=== PATIENT | female | born 1985 | race Caucasian/White ===

== ENCOUNTER 2016-08-31 00:01 | Emergency (ER) | payer OTHER ==
[~2016-08-31] VITALS: Ht 162.6 cm; Wt 69.6 kg
[~2016-08-31 00:01] MED LIST: BACTRIM,SEPT1 TABLET PO; BAYER BACK & B1 EACH PO; ENDOCET 5-3251 EACH PO; FIORICET,ESG1 TABLET PO; FLEXERIL10 MG PO; IBUPROFEN800 MG PO; IRON325 MG PO; LEXAPRO10 MG PO; LEXAPRO20 MG PO; MOTRIN800 MG PO; NAPROSYN500 MG PO; OXYCODONE HCL5 MG PO; PREDNISONE20 MG PO; PRILOSEC20 MG PO; TOPAMAX50 MG PO; TYLENOL WITH C1 EACH PO; VALIUM5 MG PO; XANAX0.25 MG PO; [UNRECOGNIZED DRUG - CODE]
[2016-08-31] MEDS ORDERED: NORCO 5/3251 TABLET PO (01:36)
[2016-08-31 02:42] VITALS: BP 151/70
== END 2016-08-31 02:42 | disposition home or self-care (01) ==
LOC: EXP 00:01 → EME 00:01 → EXP 02:42
PROC: 2W3QX1Z Immobilization of Right Lower Leg using Splint (ICD-10-PCS; principal; 2016-08-31)
DX: S92.351A Displaced fracture of fifth metatarsal bone, right foot, initial encounter for closed fracture (principal); S99.911A Unspecified injury of right ankle, initial encounter; W10.9XXA Fall (on) (from) unspecified stairs and steps, initial encounter; X50.1XXA Overexertion from prolonged static or awkward postures, initial encounter; Y92.009 Unspecified place in unspecified non-institutional (private) residence as the place of occurrence of the external cause; F17.200 Nicotine dependence, unspecified, uncomplicated
CPT/HCPCS: 73610; 73630

== ENCOUNTER 2016-12-09 23:21 | Emergency (ER) | payer OTHER ==
[~2016-12-09] VITALS: Ht 162.6 cm; Wt 70.8 kg
[~2016-12-09 23:21] MED LIST changes: +NORCO 5/3251 TABLET PO
[2016-12-09 23:25] VITALS: BP 118/96
[2016-12-10] MEDS ORDERED: PERCOCET 5/31 TABLET PO (02:02)
== END 2016-12-10 02:15 | disposition home or self-care (01) ==
LOC: EME 23:21
DX: S52.501A Unspecified fracture of the lower end of right radius, initial encounter for closed fracture (principal); S52.611A Displaced fracture of right ulna styloid process, initial encounter for closed fracture; W01.0XXA Fall on same level from slipping, tripping and stumbling without subsequent striking against object, initial encounter; Y93.E5 Activity, floor mopping and cleaning
CPT/HCPCS: 73110; 99281; 99284; S0020

== ENCOUNTER 2017-03-22 12:18 | Emergency (ER) | payer OTHER ==
[~2017-03-22] VITALS: Ht 162.6 cm; Wt 68.2 kg
[~2017-03-22 12:18] MED LIST changes: +PERCOCET 5/31 TABLET PO
[2017-03-22 12:54] LABS: ADD MIUA? YES; BILIRUBIN NEGATIVE; BLOOD LARGE; COLOR AMBER ((YELLOW)); GLUCOSE (STRIP) NEGATIVE; KETONES 5; LEUKOCYTES MODERATE; NITRITE POSITIVE; PROTEIN (STRIP) >=500; SPECIFIC GRAVITY 1.032 (1.000-1.030)
[2017-03-22 12:58] LABS: BACTERIA 3+ /HPF; BUDDING YEAST 1+; EPITHELIAL CELLS 4+ /HPF; MUCUS 4+ /LPF; RED BLOOD CELLS 40-50 /HPF (0-5); UCUL ADDED? YES; WHITE BLOOD CELLS TNTC /HPF (0-5)
[2017-03-22 13:39] LABS: HEMATOCRIT 38.7 % (36.0-46.0); MCH 21.3 PG (29.0-34.0); MCHC 28.7 G/DL (30.0-36.0); MCV 74.3 FL (83-99); MEAN PLAT.VOLUME 10.1 uM^3 (9.5-12.4); PLATELET COUNT 525 K/uL (156-360); RBC DIS.WIDTH-CV 16.9 % (11.8-14.6); RBC DIS.WIDTH-SD 44.4 % (39-53); RED BLOOD COUNT 5.21 M/uL (3.80-5.20); WHITE BLOOD COUNT 8.1 K/uL (4.1-10.2)
[2017-03-22 13:53] LABS: QUANTITATIVE HCG < 4.0 MIU/ML
[2017-03-22 14:18] LABS: ALKALINE PHOSPHATASE 66 IU/L (3-129); ANION GAP 16 MEQ/L (2-14); CHLORIDE 103 MEQ/L (99-109); GFR ESTIMATE (CALCULATED) > 59 mL/min/; GLUCOSE 94 mg/dL (70-99); POTASSIUM 4.6 MEQ/L (3.7-5.4); SAMPLE HEMOLYSIS CHECK 0; SAMPLE ICTERIC CHECK 0; SAMPLE LIPEMIA CHECK 0; SODIUM 138 MEQ/L (136-147); TOTAL BILIRUBIN 0.3 MG/DL (0.0-1.0); UREA NITROGEN (BUN) 19 mg/dL (9-23)
[2017-03-22] MEDS ORDERED: HYDROCODON-ACE1 EAC8 PO (14:24)
[2017-03-22] MEDS ORDERED: ZOFRAN ODT4 MG PO (15:57)
[2017-03-22] MEDS ORDERED: KEFLEX500 MG PO (15:57)
[2017-03-22 16:54] VITALS: BP 107/66
== END 2017-03-22 17:01 | disposition home or self-care (01) ==
LOC: EME 12:18
DX: N39.0 Urinary tract infection, site not specified (principal); R11.2 Nausea with vomiting, unspecified; K59.00 Constipation, unspecified; M79.7 Fibromyalgia; H54.61 Unqualified visual loss, right eye, normal vision left eye; F41.9 Anxiety disorder, unspecified; F17.200 Nicotine dependence, unspecified, uncomplicated; Z91.040 Latex allergy status; Z88.8 Allergy status to other drugs, medicaments and biological substances
CPT/HCPCS: 74177; 80053; 81003; 83605; 84702; 85027; 87040; 87077; 87086; 87186; 99281; 99285; J0500; J1885; J2405; J7030

== ENCOUNTER 2017-11-05 20:09 | Emergency (ER) | payer OTHER ==
[~2017-11-05] VITALS: Ht 162.6 cm; Wt 74.8 kg
[~2017-11-05 20:09] MED LIST changes: +HYDROCODON-ACE1 EAC8 PO; +KEFLEX500 MG PO; +ZOFRAN ODT4 MG PO
[2017-11-05] MEDS ORDERED: NORCO 7.5/321 TABLET PO (21:27)
[2017-11-05] MEDS ORDERED: MOTRIN800 MG PO (21:27)
[2017-11-05 22:00] VITALS: BP 130/61
== END 2017-11-05 22:34 | disposition home or self-care (01) ==
LOC: EME 20:09
PROC: 2W3CX1Z Immobilization of Right Lower Arm using Splint (ICD-10-PCS; principal; 2017-11-05)
DX: S52.611A Displaced fracture of right ulna styloid process, initial encounter for closed fracture (principal); X50.9XXA Other and unspecified overexertion or strenuous movements or postures, initial encounter; W20.8XXA Other cause of strike by thrown, projected or falling object, initial encounter; F17.200 Nicotine dependence, unspecified, uncomplicated
CPT/HCPCS: 73110; 99281; 99284

== ENCOUNTER → 2017-12-10 | Outpatient (CLI) | payer OTHER ==
[~2017-12-10] MED LIST changes: +NORCO 7.5/321 TABLET PO
== END | disposition home or self-care (01) ==
LOC: CDC 14:16
DX: Z01.810 Encounter for preprocedural cardiovascular examination (principal)
CPT/HCPCS: 93000

== ENCOUNTER 2017-12-21 07:29 | Day surgery (SDC) | payer OTHER ==
[~2017-12-21] VITALS: Ht 162.6 cm; Wt 75.7 kg
[~2017-12-21 07:29] MED LIST changes: +ASCORBIC ACID500 M3 PO
[2017-12-21 08:20] VITALS: BP 119/61
[2017-12-21 13:19] VITALS: BP 128/65
[2017-12-21 14:20] VITALS: BP 126/78
== END 2017-12-21 14:35 | disposition home or self-care (01) ==
LOC: SDC
PROVIDERS: Orthopaedic Surgery Hand Surgery
DX: M25.831 Other specified joint disorders, right wrist (principal); M19.131 Post-traumatic osteoarthritis, right wrist; Z79.82 Long term (current) use of aspirin; F17.200 Nicotine dependence, unspecified, uncomplicated; Z88.5 Allergy status to narcotic agent; Z91.040 Latex allergy status; M79.7 Fibromyalgia
CPT/HCPCS: 73110; 76000; 81025; 87641; J0131; J0690; J1170; J2250; J2405; J3010; S0020